=== PATIENT | male | born 1990 | race Two or more races ===

== ENCOUNTER 2016-07-23 00:42 | Emergency (ER) | payer OTHER ==
[~2016-07-23] VITALS: Ht 165.1 cm; Wt 56.7 kg
[2016-07-23 01:00] VITALS: BP 111/72
== END 2016-07-23 02:50 | disposition home or self-care (01) ==
LOC: ER 00:49
DX: T26.41XA Burn of right eye and adnexa, part unspecified, initial encounter (principal); X08.8XXA Exposure to other specified smoke, fire and flames, initial encounter; Y93.89 Activity, other specified; Y92.89 Other specified places as the place of occurrence of the external cause; Y99.0 Civilian activity done for income or pay
CPT/HCPCS: 80307